=== PATIENT | male | born 1970 | race Caucasian/White ===

== ENCOUNTER 2023-10-07 12:13 | Inpatient (IN) ==
[2023-10-07] MEDS ORDERED: Al Hydrox/Mg Hydrox/Simet LIQ 30 ML UDC PO PRN (15:24)
[2023-10-08] MEDS: Nicotine GUM 2MG FRUIT FLAVOR PO PRN ×3 (00:14→17:36)
[2023-10-08] MEDS: Vitamin THERAPEUTIC TAB PO SCH (07:49)
[2023-10-08 08:20] LABS: HDL Cholesterol 35.2 mg/dL
[2023-10-09] MEDS: Nicotine GUM 2MG FRUIT FLAVOR PO PRN ×4 (07:39→17:38)
[2023-10-09] MEDS: Vitamin THERAPEUTIC TAB PO SCH (07:39)
[2023-10-10] MEDS ORDERED: LORazepam 2 mg VIAL 1 ml ONE (01:02)
[2023-10-10] MEDS ORDERED: Haloperidol 5 mg/ml SDV IV/IM 5 MG/ML AMP ONE (01:02)
[2023-10-10] MEDS ORDERED: Lorazepam PYXIS KEY PRN (01:36)
[2023-10-10] MEDS ORDERED: LORazepam 2 mg VIAL 1 ml IM ONE (02:00)
[2023-10-10] MEDS ORDERED: Haloperidol 5 mg/ml SDV IV/IM 5 MG/ML AMP IM ONE (02:00)
[2023-10-10] MEDS: Vitamin THERAPEUTIC TAB PO SCH (08:39)
[2023-10-10] MEDS: Nicotine GUM 2MG FRUIT FLAVOR PO PRN ×3 (08:40→20:19)
[2023-10-11] MEDS: Nicotine GUM 2MG FRUIT FLAVOR PO PRN ×4 (03:11→20:23)
[2023-10-11] MEDS: Albuterol HFA INHALER 8 gm MDI INH PRN (07:37)
[2023-10-11] MEDS: Vitamin THERAPEUTIC TAB PO SCH (07:41)
[2023-10-12] MEDS: Nicotine GUM 2MG FRUIT FLAVOR PO PRN ×3 (08:12→21:30)
[2023-10-12] MEDS: Vitamin THERAPEUTIC TAB PO SCH (08:12)
[2023-10-13] MEDS: Nicotine GUM 2MG FRUIT FLAVOR PO PRN ×4 (05:29→21:14)
[2023-10-13] MEDS: Vitamin THERAPEUTIC TAB PO SCH (07:25)
[2023-10-13] MEDS: Albuterol HFA INHALER 8 gm MDI INH PRN (09:27)
[2023-10-14] MEDS: Nicotine GUM 2MG FRUIT FLAVOR PO PRN ×3 (04:38→20:16)
[2023-10-14] MEDS: Vitamin THERAPEUTIC TAB PO SCH (07:47)
[2023-10-15] MEDS: Nicotine GUM 2MG FRUIT FLAVOR PO PRN ×4 (06:43→20:16)
[2023-10-15] MEDS: Vitamin THERAPEUTIC TAB PO SCH (08:04)
[2023-10-15 11:23] VITALS: BP 115/86
[2023-10-16] MEDS: Nicotine GUM 2MG FRUIT FLAVOR PO PRN ×2 (00:19→08:58)
[2023-10-16] MEDS: Vitamin THERAPEUTIC TAB PO SCH (08:57)
== END 2023-10-16 11:53 | disposition home or self-care (01) | DRG 885 ==
LOC: BSU 14:02
PROVIDERS: ADMIT Psychiatry & Neurology Psychiatry; ATTEND Psychiatry & Neurology Psychiatry

== ENCOUNTER 2023-10-21 13:13 | Inpatient (IN) ==
[2023-10-21 13:54] LABS: ABS Basophils 0.1 10^3/uL (0.0-0.1); ABS Lymphocytes 1.7 10^3/uL (1.0-4.8); ABS Monocytes 0.6 10^3/uL (0.0-1.1); ABS Neutrophils 5.3 10^3/uL (1.5-7.6); ABS Nucleated RBC 0.01 10^3/ul; Eosinophil % 0.5 %; Hematocrit 46.2 % (38-53); Hemoglobin 15.9 g/dL (13.2-16.3); Lymphocyte % 22.5 %; Mean Corpuscular Hemoglobin 31.4 pg (27-33); Mean Corpuscular Hgb Conc 34.3 g/dL (31-36); Mean Corpuscular Volume 91.4 fL (80-97); Mean Platelet Volume 8.4 fL (7.5-11.2); Nucleated Red Blood Cells % 0.1 %/100WBC (0.0-0.8); Platelet Count 188 10^3/uL (150-450); Red Blood Count 5.05 10^6/uL (4.06-5.63); Red Cell Distribution Width 13.9 % (12-17); White Blood Count 7.6 10^3/uL (3.6-10.2)
[2023-10-21 14:00] LABS: Urine Appearance Clear; Urine Bilirubin Negative (Negative); Urine Blood 1+ (Negative); Urine Color Straw; Urine Glucose Negative (Negative); Urine Ketones Negative (Negative); Urine Nitrite Negative (Negative); Urine Protein Negative (Negative); Urine Specific Gravity 1.003 (1.002-1.030); Urine Urobilinogen Negative (Negative)
[2023-10-21 14:03] LABS: Urine Bacteria Absent (Absent); Urine Red Blood Cell Trace(0-2/hpf) (Absent); Urine White Blood Cell Absent (Absent)
[2023-10-21 14:13] LABS: ALT 19 U/L (7-52); AST 24 U/L (13-39); Albumin 4.7 g/dL (3.2-5.2); Albumin/Globulin Ratio 1.5 (1-3); Alkaline Phosphatase 65 U/L (35-149); Anion Gap 8 mmol/L (2-16); Blood Urea Nitrogen 8 mg/dL (6-24); CO2 Carbon Dioxide 26 mmol/L (22-32); Calcium 9.6 mg/dL (8.6-10.3); Chloride 100 mmol/L (101-111); Creatinine, Serum 0.81 mg/dL (0.67-1.17); Globulin 3.2 g/dL (2-4); Glucose 120 mg/dL (70-100); Potassium 3.8 mmol/L (3.5-5.0); Sodium 134 mmol/L (135-145); Total Bilirubin 0.5 mg/dL (0.2-1.0); Total Protein 7.9 g/dL (6.4-8.9); eGFR CKD-EPI 104.8 (>60)
[2023-10-21 14:16] LABS: Urine Benzodiazepine Screen None Detected (None Detect); Urine Cannabinoids Screen None Detected (None Detect); Urine Opiates Screen None Detected (None Detect)
[2023-10-21 14:48] LABS: Acetaminophen < 15 mcg/mL; Alcohol, S < 13 mg/dL (<13); Salicylate < 2.50 mg/dL (<30)
[2023-10-21 14:56] LABS: TSH Ultra Thyroid Stim Horm 2.48 mcIU/mL (0.34-5.60)
[2023-10-21] MEDS ORDERED: Albuterol HFA INHALER 8 gm MDI INH PRN (15:56)
[2023-10-22 08:16] LABS: HDL Cholesterol 33.5 mg/dL
[2023-10-22] MEDS: Nicotine PATCH 7 MG/24 HR PATCH TRANSDERM SCH (09:47)
[2023-10-22] MEDS: Nicotine GUM 2MG FRUIT FLAVOR PO PRN ×4 (09:48→20:23)
[2023-10-23] MEDS: Nicotine GUM 2MG FRUIT FLAVOR PO PRN ×2 (05:25→10:07)
[2023-10-23 07:59] VITALS: BP 131/87
[2023-10-23] MEDS: Nicotine PATCH 7 MG/24 HR PATCH TRANSDERM SCH (08:34)
== END 2023-10-23 14:10 | disposition home or self-care (01) | DRG 897 ==
LOC: ED 13:13 → EDHOLD 15:46 → BSU 18:03
PROVIDERS: ADMIT Psychiatry & Neurology Psychiatry; ATTEND Psychiatry & Neurology Psychiatry

== ENCOUNTER 2024-06-16 15:16 | Inpatient (IN) ==
[2024-06-16 16:07] LABS: ABS Basophils 0.1 10^3/uL (0.0-0.1); ABS Eosinophils 0.1 10^3/uL (0.0-0.5); ABS Lymphocytes 1.5 10^3/uL (1.0-4.8); ABS Monocytes 0.3 10^3/uL (0.0-1.1); ABS Neutrophils 3.2 10^3/uL (1.5-7.6); ABS Nucleated RBC 0.01 10^3/ul; Eosinophil % 1.4 %; Hematocrit 41.9 % (38-53); Hemoglobin 14.6 g/dL (13.2-16.3); Lymphocyte % 29.7 %; Mean Corpuscular Hemoglobin 32.5 pg (27-33); Mean Corpuscular Hgb Conc 34.9 g/dL (31-36); Mean Corpuscular Volume 93.1 fL (80-97); Nucleated Red Blood Cells % 0.1 %/100WBC (0.0-0.8); Platelet Count 205 10^3/uL (150-450); Red Cell Distribution Width 13.9 % (12-17); White Blood Count 5.2 10^3/uL (3.6-10.2)
[2024-06-16 16:54] LABS: ALT 22 U/L (7-52); AST 37 U/L (13-39); Acetaminophen < 15 mcg/mL; Albumin 4.2 g/dL (3.2-5.2); Albumin/Globulin Ratio 1.5 (1-3); Alcohol, S < 13 mg/dL (<13); Alkaline Phosphatase 75 U/L (35-149); Anion Gap 7 mmol/L (2-16); Blood Urea Nitrogen 8 mg/dL (6-24); CO2 Carbon Dioxide 26 mmol/L (22-32); Calcium 9.2 mg/dL (8.6-10.3); Chloride 107 mmol/L (101-111); Creatinine, Serum 0.95 mg/dL (0.67-1.17); Globulin 2.8 g/dL (2-4); Glucose 98 mg/dL (70-100); Potassium 3.6 mmol/L (3.5-5.0); Salicylate < 2.50 mg/dL (<30); Sodium 140 mmol/L (135-145); Total Bilirubin 0.4 mg/dL (0.2-1.0); eGFR CKD-EPI 94.5 (>60)
[2024-06-16 17:09] LABS: TSH Ultra Thyroid Stim Horm 0.79 mcIU/mL (0.34-5.60)
[2024-06-16 18:24] LABS: Urine Appearance Clear; Urine Bilirubin Negative (Negative); Urine Blood Negative (Negative); Urine Color Colorless; Urine Glucose Negative (Negative); Urine Ketones Negative (Negative); Urine Nitrite Negative (Negative); Urine Protein Negative (Negative); Urine Specific Gravity 1.003 (1.002-1.030); Urine Urobilinogen Negative (Negative)
[2024-06-16 18:54] LABS: Urine Benzodiazepine Screen Presumptive Positive (None Detect); Urine Cannabinoids Screen None Detected (None Detect); Urine Opiates Screen None Detected (None Detect)
[2024-06-17] MEDS ORDERED: Al Hydrox/Mg Hydrox/Simet LIQ 30 ML UDC PO PRN (01:47)
[2024-06-17] MEDS: Nicotine Lozenge mini 4 MG LOZNG.MINI MT PRN (03:32)
[2024-06-17] MEDS: Vitamin THERAPEUTIC TAB PO SCH (10:26)
[2024-06-19] MEDS ORDERED: Albuterol HFA INHALER 8 gm MDI INH PRN (05:41)
[2024-06-24] MEDS: Lidocaine PATCH 5% PATCH TRANSDERM PRN (22:35)
[2024-06-28 11:46] VITALS: BP 125/84
== END 2024-06-28 12:52 | disposition home or self-care (01) | DRG 885 ==
LOC: ED 15:16 → EDHOLD 06-17 01:48 → BSU 06-17 04:01
PROVIDERS: ADMIT Psychiatry & Neurology Psychiatry; ATTEND Student in an Organized Health Care Education/Training Program